=== PATIENT | female | born 1980 | race Caucasian/White ===

== ENCOUNTER 2021-01-07 12:20 | Emergency (ER) | payer OTHER ==
[~2021-01-07] VITALS: Ht 167.6 cm; Wt 99.8 kg
[2021-01-07] MEDS ORDERED: BUSPIRONE HCL5 MG PO (12:34)
[2021-01-07] MEDS ORDERED: AMITRIPTYLINE H25 MG PO (12:34)
[2021-01-07] MEDS ORDERED: CYCLOBENZAPRINE10 MG PO (12:34)
[2021-01-07] MEDS ORDERED: ROPINIROLE HCL2 M1 PO (12:35)
[2021-01-07] MEDS ORDERED: LAMOTRIGINE25 MG PO (12:35)
[2021-01-07] MEDS ORDERED: PERCOCET 5-3251 EACH PO (17:55)
[2021-01-07] MEDS ORDERED: PREDNISONE20 MG PO (17:55)
== END 2021-01-07 18:19 | disposition home or self-care (01) ==
LOC: ED 12:20
DX: M51.24 Other intervertebral disc displacement, thoracic region (principal); R32 Unspecified urinary incontinence; Z87.891 Personal history of nicotine dependence; Z88.8 Allergy status to other drugs, medicaments and biological substances; Z91.040 Latex allergy status; Z79.899 Other long term (current) drug therapy
CPT/HCPCS: 72125; 72128; 72131; 81001; 99284-25

== ENCOUNTER 2024-02-18 20:06 | Emergency (ER) | payer OTHER ==
[~2024-02-18] VITALS: Ht 167.6 cm; Wt 86.0 kg
[~2024-02-18 20:06] MED LIST: AMITRIPTYLINE H25 MG PO; BUSPIRONE HCL5 MG PO; CYCLOBENZAPRINE10 MG PO; LAMOTRIGINE25 MG PO; PERCOCET 5-3251 EACH PO; PREDNISONE20 MG PO; ROPINIROLE HCL2 M1 PO
[2024-02-18 20:22] LABS: BASOPHILS 0.5 % (0-2); EOSINOPHILS 0.5 % (0-6); HEMOGLOBIN 13.3 g/dL (12.0-18.0); LYMPHOCYTES 32.9 % (24-44); MCH 28.9 (27-36); MCHC 32.4 g/dl (30-36); MCV 89.2 fl (81-99); MONOCYTES 3.1 % (0-12); PLATELET COUNT 295 K/uL (140-440); RBC 4.59 M/ul (4.3-5.7); RDW 13.6 (10.5-15.0)
[2024-02-18 20:38] LABS: PROTIME 12.8 Sec (11.2-14.2)
[2024-02-18] MEDS ORDERED: MIRALAX119 GM PO (20:38)
[2024-02-18] MEDS ORDERED: TOPIRAMATE ER200 MG PO (20:38)
[2024-02-18] MEDS ORDERED: IRON159 MG PO (20:39)
[2024-02-18] MEDS ORDERED: IBUPROFEN800 MG PO (20:39)
[2024-02-18] MEDS ORDERED: ONDANSETRON ODT8 MG PO (20:39)
[2024-02-18] MEDS ORDERED: SUMATRIPTAN5 MG NAS (20:40)
[2024-02-18] MEDS ORDERED: SUMATRIPTAN SUC25 MG PO (20:40)
[2024-02-18] MEDS ORDERED: EPIN0.3P (20:40)
[2024-02-18] MEDS ORDERED: ZALEPLON5 MG PO (20:40)
[2024-02-18] MEDS ORDERED: VENTOLIN HFA18 GM INH (20:41)
[2024-02-18 20:46] LABS: ALBUMIN 4.1 g/dL (3.4-5.0); ALBUMIN/GLOBULIN RATIO 1.08 (1.1-2.4); ALKALINE PHOSPHATASE 77 U/L (46-116); ALT (SGPT) 32 U/L (14-59); ANION GAP 14.1 (7-21); AST (SGOT) 16 U/L (15-37); BILIRUBIN, TOTAL 0.2 ng/dL (0.2-1.0); BUN/CREATININE RATIO 14.89 (6.0-28.6); CALCIUM 9.6 mg/dL (8.5-10.1); CARBON DIOXIDE 25 mmol/L (21-32); CHLORIDE 107 mmol/L (98-107); CREATININE, SERUM 0.94 mg/dL (0.55-1.02); GLOMERULAR FILTRATION RATE,EST 76 mL/min (>60); POTASSIUM 3.1 mmol/L (3.5-5.1); PROTEIN, TOTAL 7.9 g/dL (6.4-8.2); UREA NITROGEN 14 mg/dL (7-18)
[2024-02-18 21:16] LABS: AMPHETAMINES, URINE NEGATIVE (NEGATIVE); BARBITURATES, URINE NEGATIVE (NEGATIVE); BENZODIAZEPINE, URINE NEGATIVE (NEGATIVE); BUPRENORPHINE, URINE NEGATIVE (NEGATIVE); CANNABINOID, URINE NEGATIVE (NEGATIVE); COCAINE, URINE NEGATIVE (NEGATIVE); ECSTASY, URINE NEGATIVE (NEGATIVE); FENTANYL, URINE NEGATIVE (NEGATIVE); METHADONE, URINE NEGATIVE (NEGATIVE); OPIATES, URINE POSITIVE (NEGATIVE); OXYCODONE, URINE POSITIVE (NEGATIVE); PHENCYCLIDINE, URINE NEGATIVE (NEGATIVE)
[2024-02-19 00:32] VITALS: BP 132/52
--- NOTE | 2024-02-21 12:25 | EKG ---
[facility] [address] [facility] [place], [place] [address] Signed Sinus rhythm with frequent premature ventricular complexes in a pattern of bigeminy Nonspecific ST and T wave abnormality Prolonged QT Abnormal ECG No previous ECGs available Confirmed by Ga Roberts MD ([id number]) on 02/21/2024 12:25:39 PM Electronically Signed By: GA ROBERTS DO 02/21/24 1225 PATIENT NAME: ABRAM LOPEZ Electrocardiogram DATE OF : 76 PHYSICIAN: GA ROBERTS DO REPORT #: [id number] REPORT IS CONFIDENTIAL AND NOT TO BE RELEASED WITHOUT AUTHORIZATION
== END 2024-02-19 00:30 | disposition home or self-care (01) ==
LOC: ED 20:06
PROVIDERS: Family Medicine
DX: R07.9 Chest pain, unspecified (principal); F45.9 Somatoform disorder, unspecified; R53.1 Weakness; Z87.891 Personal history of nicotine dependence; Z88.8 Allergy status to other drugs, medicaments and biological substances; Z91.040 Latex allergy status; Z79.899 Other long term (current) drug therapy
CPT/HCPCS: 36415; 70450; 70496; 70498; 71045; 80053; 80307; 83735; 83880; 84484; 85025; 85379; 85610; 93005; 93010; 99285-25; Q9967